=== PATIENT | male | born 1970 | race Caucasian/White ===

== ENCOUNTER 2020-03-28 10:45 | Observation (INO) | payer BC, SELFPAY ==
[2020-03-28] VITALS (9 sets, daily range): BP systolic 151–192; BP diastolic 98–136; PULSE 63–96; RESP 16–28; TEMP 36.3–36.6; O2SAT 97–100; BMI 32.1
--- NOTE | ~2020-03-28 | US_ITS ---
EXAMINATION: US renal BI DATE: 03/29/2020 10:16 INDICATION: Elevated creatinine TECHNIQUE: Multiple grayscale and Doppler ultrasound images of the kidneys were obtained. COMPARISON: None. FINDINGS: The right kidney measures 10.2 x 5.1 x 5.3 cm. The left kidney measures 10.0 x 5.5 x 6.0 cm . The kidneys demonstrate normal parenchymal echogenicity. There is no hydronephrosis. The bladder is normal. The prostate is enlarged. IMPRESSION: 1. Normal kidneys without hydronephrosis. Reviewed, dictated and finalized at location A. OR OF DENTAL MEDICINE
--- NOTE | ~2020-03-28 | XR_ITS ---
EXAMINATION: XR chest 1V portable DATE: 03/28/2020 12:07 INDICATION: Shortness of breath TECHNIQUE: frontal view of the chest was obtained. COMPARISON: Chest radiograph dated 04/03/2011 FINDINGS: Diffuse increased interstitial pattern. Several airspace opacity in the right infrahilar region. Unch anged linear likely discoid atelectasis/scarring at the medial left lung base. Calcified nodules in t he left midlung zone consistent with old granulomatous disease. No pleural effusion or pneumothorax. Cardiomegaly. Partially visualized plate and screw fixation for anterior spinal fusion in the mid to lower cervical spine. IMPRESSION: 1. Cardiomegaly. 2. Diffuse increased interstitial pattern and subtle right infrahilar opacity and would favor congest remedios heart failure related pulmonary edema over pneumonia. Reviewed, dictated and finalized at location A. ER IMPRESSION: 1. Cardiomegaly. 2. Diffuse increased interstitial pattern and subtle right infrahilar opacity a nd would favor congestive heart failure related pulmonary edema over pneumonia.
--- NOTE | 2020-03-28 11:07 | ECG_ITS ---
Measurements Intervals [place] Rate: 84 P: 53 VT: 174 QRS: 1 QRSD: 106 T: 160 QT: 388 QTc: 461 Interpretive Statements SINUS RHYTHM LEFT ATRIAL ENLARGEMENT LEFT VENTRICULAR HYPERTROPHY AND ST-T CHANGE BORDERLINE ECG Electronically Signed On 03-28-2020 11:59:16 MATERIALS RECYCLER by Surinder Salazar D.O.
[2020-03-28 11:23] LABS: Basophils Percent Auto 0.3 % (0.2-1.2); Eosinophils Absolute Auto 0.1 K/mm3 (0-0.3); Eosinophils Percent Auto 1.8 % (0-4.4); Hematocrit 48.3 % (42.0-52.0); Hemoglobin 16.3 g/dL (14.0-18.0); Immature Granulocyte Absolute 0.03 K/mm3 (0.00-0.031); Immature Granulocyte Percent A 0.4 % (0-0.5); Lymphocytes Absolute Auto 1.19 K/mm3 (0.9-3.2); Lymphocytes Percent Auto 17.6 % (18.3-44.2); Mean Corpuscular HGB Conc 33.7 g/dl (32-36); Mean Corpuscular Hemoglobin 29.4 pg (26-34); Mean Platelet Volume 11.7 fl (7.4-10.4); Monocytes Absolute Auto 0.4 K/mm3 (0.1-0.6); Monocytes Percent Auto 6.2 % (2.6-8.5); Neutrophils Percent Auto 73.7 % (45.5-73.1); Platelet Count Result 195 k/mm3 (150-375); Red Blood Count 5.55 M/mm3 (4.6-6.20); Red Cell Distribution Width 13.2 % (11.5-14.5); White Blood Count 6.8 K/mm3 (4.5-10.0)
[2020-03-28 11:38] LABS: Anion Gap 8 mmol/L (8-16); Blood Urea Nitrogen 32 mg/dL (9-20); Calcium 9.1 mg/dL (8.4-10.2); Carbon Dioxide 28 mmol/L (22-30); Chloride 106 mmol/L (98-107); Estimated CRCL calculation 57 ml/min; Estimated Glomerular Filt Rate 46; Glucose 115 mg/dL (75-110); Potassium 4.3 mmol/L (3.4-5.0); Sodium 142 mmol/L (137-145)
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
[2020-03-28 13:56] LABS: NT Pro B Type Natriuretic Pept 2740 PG/ML (5-100)
[2020-03-28] MEDS: FUROSEMIDE INJ 40 MG/4 ML VIAL IV PUSH (14:28)
[2020-03-28] MEDS: hydrALAZINE HCL 20 MG/ML VIAL 10 MG IV PUSH (15:56)
--- NOTE | 2020-03-28 17:05 | PC.NURSE ---
This patient, Boris Conner, was admitted to 3 [facility] Surg Room 316-01. Patient/family oriented to hospital policies and general routines including ID bracelet, bed and alarms, visiting hours, pain management, procedures, bathroom and other care routines, personal items, smoking policy, room service/diet, and visiting hours. Information on how to activate the Rapid Response Team has been discussed. Patient/Family are encouraged to report perceived risks to care and to ask questions if they do not understand what they are told or what they should do.
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
[2020-03-28] MEDS: METOPROLOL SUCCINATE EXT REL 50 MG TABCR 150 MG PO (18:10)
[2020-03-28] MEDS: amLODIPine BESYLATE 5 MG TABLET 10 MG PO (18:10)
[2020-03-28 20:21] LABS: Add Urine Microscopic? NO; Appearance Urine Clear (Clear); Bilirubin Urine Negative (Negative); Blood Urine Negative (Negative); Color Urine Colorless (Yellow); Glucose Urine UA Negative (Negative); Ketones Urine Negative (Negative); Leukocyte Esterase Ur Negative LEU/UL (NEGATIVE); Nitrate Urine Negative (Negative); Protein Urine Negative (Negative); Specific Grav Ur 1.009 (1.001-1.035); Urobilinogen Urine Negative mg/dL (<2.0)
[2020-03-28] MEDS: ACETAMINOPHEN 325 MG TABLET 650 MG PO (21:15)
[2020-03-28] MEDS: ENOXAPARIN 40 MG/0.4 ML SYRINGE SUB-Q (21:16)
[2020-03-29] VITALS (9 sets, daily range): BP systolic 141–181; BP diastolic 89–123; PULSE 50–67; RESP 16–20; TEMP 36.4–36.6; O2SAT 94–100
--- NOTE | 2020-03-29 06:00 | ECHO_ITS ---
Patient Info Name: Boris Conner Age: 50 years : 1970 Gender: Male Ht: 69 in Wt: 217 lbs BSA: 2.22 m2 HR: 56 bpm BP: 144 / 99 mmHg Heart Rhythm: Sinus Rhythm Technical Quality: Good Exam Date: 03/29/2020 8:20 AM Exam Location: [facility] Pulmonary Exam Room: [facility] Patient Status: Outpatient Admit Date: 03/28/2020 Staff Ordering Physician: yKe Greco MD Radiology Director: Aliya James RDCS Attending Provider: Soledad Bender MD Referring Physician: Angus AGUDELO; Exam Type: CA echo doppler color flow Study Info Indications - htn systolic murmur chf Complete two-dimensional, color flow and Doppler transthoracic echocardiogram is performed. History/Risk Factors covid january 2020. Summary 1. Left ventricular chamber dimension is normal. 2. Left ventricular systolic function is moderately reduced, estimated at 35%. 3. Severe basal inferior hypokinesis. 4. False tendon noted in LV. 5. There is moderately increased left ventricular wall thickness. 6. The left ventricular diastolic function is grade II diastolic dysfunction. 7. Left atrial chamber dimension is severely enlarged. 8. Right atrial chamber dimension is moderately enlarged. 9. There is no aortic valve stenosis. 10. There is mild mitral valve regurgitation. 11. There is mild tricuspid valve regurgitation. 12. No pulmonary hypertension, estimated pulmonary arterial systolic pressure is 33 mmHg. Left Ventricle Left ventricular chamber dimension is normal. Left ventricular systolic function is moderately reduced, estimated at 35%. There is moderately increased left ventricular wall thickness. The left ventricular diastolic function is grade II diastolic dysfunction. Global longitudinal strain is severely elevated at -9 %. False tendon noted in LV. Severe basal inferior hypokinesis. Right Ventricle Right ventricular chamber dimension is normal. Right ventricular systolic function is normal. Borderline right ventricular hypertrophy. Left Atria Left atrial chamber dimension is severely enlarged. Right Atria Right atrial chamber dimension is moderately enlarged. Aortic Valve The aortic valve is not well visualized. There is no aortic valve stenosis. There is no aortic valve regurgitation. Pulmonic Valve The pulmonic valve is normal. There is mild pulmonic regurgitation. Mitral Valve The mitral valve has normal leaflets. There is mild mitral valve regurgitation. The mitral valve annulus is mildly calcified. Tricuspid Valve The tricuspid valve leaflets are normal. There is mild tricuspid valve regurgitation. No pulmonary hypertension, estimated pulmonary arterial systolic pressure is 33 mmHg. Pericardium/Pleural The pericardium appears normal. There is no pericardial effusion. Inferior Vena Cava Normal inferior vena cava with >50% collapse upon inspiration consistent with normal right atrial pressure, 5 mmHg. Aorta The aortic root size at the sinus of Valsalva is normal. Left Ventricular Outflow Tract Name Value Normal LVOT 2D LVOT Diameter 2.1 cm LVOT Doppler
[2020-03-29 06:50] LABS: Alanine Aminotransferase 20 U/L (4-50); Albumin Level 3.9 g/dL (3.5-5.1); Alkaline Phosphatase 86 U/L (38-126); Anion Gap 9 mmol/L (8-16); Aspartate Amino Transferase 24 U/L (17-59); Bilirubin,Total 2.5 mg/dL (0.2-1.3); Blood Urea Nitrogen 28 mg/dL (9-20); Carbon Dioxide 31 mmol/L (22-30); Chloride 100 mmol/L (98-107); Estimated CRCL calculation 54 ml/min; Estimated Glomerular Filt Rate 43; Glucose 110 mg/dL (75-110); Magnesium 2.2 mg/dL (1.6-2.3); Potassium 3.8 mmol/L (3.4-5.0); Sodium 140 mmol/L (137-145)
[2020-03-29] MEDS: POTASSIUM CHLORIDE 20 MEQ TABLET 40 MEQ PO (08:09)
[2020-03-29] MEDS: METOPROLOL SUCCINATE EXT REL 50 MG TABCR 150 MG PO (09:19)
[2020-03-29] MEDS: amLODIPine BESYLATE 5 MG TABLET 10 MG PO (09:19)
[2020-03-29] MEDS: FUROSEMIDE INJ 40 MG/4 ML VIAL IV PUSH (09:20)
[2020-03-29] MEDS: lisinopriL 20 MG TABLET PO (09:24)
--- NOTE | 2020-03-29 12:47 | PM.CNCAR ---
Assessment and Plan Assessment and plan (1) Acute exacerbation of CHF (congestive heart failure): Code(s): I50.9 - Heart failure, unspecified Status: Acute Assessment and Plan: Essentially euvolemic at this time. Echocardiogram new cardiomyopathy EF 30 35%, normal LV size, moderate LVH. Change to p.o. Lasix 20 mg daily, BMP in 1 week as outpatient. Continue beta-daryl, VALERIA-inhibitor therapy as renal function allows. CHF counseling performed and discussed at length. Pt stable and relatively asymptomatic. Disposition per Hospitalist Serve (2) Cardiomyopathy: Code(s): I42.9 - Cardiomyopathy, unspecified Status: Acute Assessment and Plan: New diagnosis, precise etiology unclear. We discussed concern for underlying obstructive CAD, nonischemic explanations including but not limited to post COVID, hypertensive heart disease related cardiomyopathy and others although I suspect less likely simply hypertensive as LV size is normal. Severe left atrial moderate right atrial enlargement etiology not entirely clear but additionally concerning. We discussed ischemic versus nonischemic workup, however, given documented LV dysfunction with wall motion abnormalities recommend proceeding directly with coronary angiography for definitive evaluation coronary anatomy. If nonobstructive disease discovered discussed further workup including cardiac MRI as clinically relevant. We discussed this with the patient and his danika Ashby over the phone. All questions answered to their satisfaction. Patient verbalized understanding and agreed with plan of care. Continue beta-daryl, VALERIA-inhibitor therapy. BP control primary focus at this time. (3) Abnormal EKG: Code(s): R94.31 - Abnormal electrocardiogram [ECG] [EKG] Status: Acute Assessment and Plan: Sinus rhythm with LVH and reports changes, however, EKG this admission more prominent. Check troponin and repeat EKG. Without be surprising troponin mildly elevated given renal insufficiency, uncontrolled hypertension and CHF exacerbation in setting of LV dysfunction. However, if elevated and repeat troponin flat more suggestive of type 2 infarct recommend aspirin 81 mg daily and plan for outpatient coronary angiography. (4) Uncontrolled hypertension: Code(s): I10 - Essential (primary) hypertension Status: Acute Assessment and Plan: Improved but not ideally controlled at this time. (5) CKD (chronic kidney disease) stage 3, GFR 30-59 ml/min: Code(s): N18.30 - Chronic kidney disease, stage 3 unspecified Status: Acute Assessment and Plan: Chronicity unknown. History of Present Illness History of Present Illness Consult date/time: Date of service: 03/29/20 12:47 Cardiology consultation at the request of Dr. Reyes of the [facility] service for our opinion regarding new cardiomyopathy and CHF. Requesting physician: Jared Reyes MD Consult reason: congestive heart failure and Other (New Cardiomyopathy) Reason For Visit: CHF Exacerbation Narrative: Patient is a pleasant 50-year-old male with a past medical history significant for longstanding hypertension and anxiety to the emergency department 03/28/2020 with progressive 2 week history of exertional dyspnea. He has decreased activity tolerance particularly up stairs but without associated chest pain. He admitted to orthopnea over the preceding several days. He claimed compliant with medications yet he had not been taking them consistently for several days prior to admission. Notes an occasional nonproductive cough but no fevers, chills, sick contacts, myalgias. Patient does state he had been previously feeling well remain active accept past 2 weeks more fatigued as above. He admits to orthopnea no lower extremity edema. He has no prior known history of coronary disease, CHF. He states he believes he had an echocardiogram 2007 with cannot recall the resul
--- NOTE | 2020-03-29 14:13 | ECG_ITS ---
Measurements Intervals [place] Rate: 55 P: 54 PA: 170 QRS: 8 QRSD: 106 T: 189 QT: 472 QTc: 454 Interpretive Statements SINUS BRADYCARDIA LEFT ATRIAL ENLARGEMENT LEFT VENTRICULAR HYPERTROPHY AND ST-T CHANGE ST-T WAVE ABNORMALITY IN ANTEROLATERAL/HIGH LAT LEADS- CONSIDER ISCHEMIA ABNORMAL ECG Electronically Signed On 03-29-2020 18:02:05 NURSING HOME DIRECTOR by Surinder Salazar D.O.
[2020-03-29 15:02] LABS: Troponin I 0.013 ng/mL (0.000-0.034)
--- NOTE | 2020-03-29 18:27 | PM.DS ---
DS: Admitting Diagnosis Admitting Diagnosis Admitting Diagnosis: Shortness of breath DS: Discharge Diagnosis Discharge Diagnosis (1) Hypertension: Qualifiers: Hypertension type: unspecified Qualified Code(s): I10 - Essential (primary) hypertension Code(s): I10 - Essential (primary) hypertension Status: Acute Assessment and Plan: Blood pressure markedly elevated on admission but had not taken his medications for several days. Had IV hydralazine and Lasix in the ER and resumed his medications. At discharge blood pressure improved but still slightly elevated at 144/98. Will follow-up with Dr. Cornejo within 2 weeks (2) Dyspnea on exertion: Code(s): R06.00 - Dyspnea, unspecified Status: Acute Assessment and Plan: Secondary to congestive heart failure. BNP elevated with negative troponin. TSH normal. Chest x-ray cardiomegaly with pulmonary vascular redistribution an EKG LVH with strain. Echocardiogram revealed ejection fraction of 35% with left ventricular hypertrophy and grade 2 diastolic dysfunction. Increase in left atrial and right atrial size with normal pulmonary artery pressure and inferior basal hypokinesis. Was given IV Lasix x2 doses and markedly improved with his shortness of breath after diuresis. Was seen by Cardiology and will follow-up within 2 weeks with plans for cardiac catheterization. Continue beta-daryl, VALERIA-inhibitor, and Lasix 20 mg daily added to regime along with his amlodipine (3) Elevated serum creatinine: Code(s): R79.89 - Other specified abnormal findings of blood chemistry Status: Acute Assessment and Plan: Creatinine 1.6 compatible with stage III renal failure. Unsure how chronic this is. 03/29/2020 creatinine 1.7.. Urinalysis was totally normal and renal sonogram was pending at the time of discharge. Will have repeat BMP drawn within 7-10 days (4) DVT prophylaxis: Code(s): Z29.9 - Encounter for prophylactic measures, unspecified Status: Acute Assessment and Plan: Lovenox while inpatient DS: Summary Hospital Course Hospital Course: Date of discharge and date of this visit 03/29/2020. 50-year-old hypertensive male presented to the emergency room with increasing shortness of breath over the past several weeks primarily dyspnea on exertion although there was a component of orthopnea. No chest pain or pedal edema. Echo revealed ejection fraction of 35% with left ventricular hypertrophy grade 2 diastolic dysfunction and and inferior basal hypokinesis. Left and right atrium were enlarged and pulmonary artery pressure was normal Stress importance of his antihypertensive medication taken regularly and Lasix 20 mg was added to his regime. He will have a basic metabolic profile drawn within 7-10 days and follow-up with Dr Cornejo in 2 weeks for probable cardiac catheterization. Time Spent with Patient Time attestation: Total time spent providing and/or coordinating discharge services: 35 minutes Exam Narrative: Exam Narrative: Condition on discharge Blood pressure 144/98 pulse is 58 regular sat 100% on room air afebrile Lungs were clear CV regular rate rhythm no murmurs Abdomen soft nontender Extremities without edema distal pulse 2 +and symmetrical Neuro alert oriented no focal deficits He was up in about no longer short of breath stable and able to be discharged home DS: Data Data Completed and Pending Labs on day of discharge: Labs from last 24 hours 03/29/20 03/29/20 03/29/20 14:33 05:48 05:48 Sodium 140 Potassium 3.8 Chloride 100 Carbon Dioxide 31 H Anion Gap 9 BUN 28 H Creatinine 1.70 H Estim Creat Clear Calc 54 Estimated GFR 43 L Glucose 110 Calcium 9.0 Magnesium 2.2 Total Bilirubin 2.5 H Direct Bilirubin 0.0 AST 24 ALT 20 Alkaline Phosphatase 86 Troponin I 0.013 Total Protein 7.0 Albumin 3.9 TSH (Reflex) 1.090 Urine Color
== END 2020-03-29 16:49 | disposition home or self-care (01) ==
LOC: ANHED 12:05 → ANH3MEDSUR 17:28
PROVIDERS: Emergency Medicine; Internal Medicine Cardiovascular Disease; Admitting Provider Family Medicine; Emergency Provider Emergency Medicine; PCP Emergency Medicine; Visit Provider Internal Medicine
DX: I13.0 Hypertensive heart and chronic kidney disease with heart failure and stage 1 through stage 4 chronic kidney disease, or unspecified chronic kidney disease (principal); I50.9 Heart failure, unspecified; I42.9 Cardiomyopathy, unspecified; N18.30 Chronic kidney disease, stage 3 unspecified; R94.31 Abnormal electrocardiogram [ECG] [EKG]; I34.0 Nonrheumatic mitral (valve) insufficiency; I36.1 Nonrheumatic tricuspid (valve) insufficiency; R06.00 Dyspnea, unspecified; R79.89 Other specified abnormal findings of blood chemistry; F41.9 Anxiety disorder, unspecified
CPT/HCPCS: 36415; 71045; 76775; 80048; 80076; 81003; 83735; 83880; 84443; 84484; 85025; 93005; 93306; 96372; 96374; 96375; 99285; A9270; G0378; J0360; J1650; J1940

== ENCOUNTER 2020-04-08 03:04 | Outpatient (CLI) | payer BC, SELFPAY ==
[2020-04-08 19:22] LABS: SARS-CoV-2 RNA PCR Negative
== END 2020-04-08 03:05 | disposition home or self-care (01) ==
LOC: ANHCOVIDDT 03:04
PROVIDERS: PCP Emergency Medicine; Visit Provider Internal Medicine Cardiovascular Disease
DX: Z01.812 Encounter for preprocedural laboratory examination (principal); Z20.822 Contact with and (suspected) exposure to COVID-19
CPT/HCPCS: C9803; U0003; U0005

== ENCOUNTER 2020-04-11 02:07 | Day surgery (SDC) | payer BC, SELFPAY ==
[2020-04-10 17:02] VITALS: BMI 32.1
[2020-04-11] VITALS (8 sets, daily range): BP systolic 138–167; BP diastolic 89–108; PULSE 63–74; RESP 14–22; TEMP 36.9; O2SAT 97–100; BMI 32.4
[2020-04-11 07:57] LABS: Basophils Percent Auto 0.2 % (0.2-1.2); Eosinophils Absolute Auto 0.1 K/mm3 (0-0.3); Eosinophils Percent Auto 1.2 % (0-4.4); Hemoglobin 16.1 g/dL (14.0-18.0); Immature Granulocyte Absolute 0.03 K/mm3 (0.00-0.031); Immature Granulocyte Percent A 0.3 % (0-0.5); Lymphocytes Absolute Auto 1.28 K/mm3 (0.9-3.2); Lymphocytes Percent Auto 14.2 % (18.3-44.2); Mean Corpuscular HGB Conc 33.5 g/dl (32-36); Mean Corpuscular Hemoglobin 29.3 pg (26-34); Mean Corpuscular Volume 87.3 fl (80-100); Mean Platelet Volume 11.7 fl (7.4-10.4); Monocytes Absolute Auto 0.5 K/mm3 (0.1-0.6); Monocytes Percent Auto 5.8 % (2.6-8.5); Neutrophils Absolute Auto 7.1 K/mm3 (1.3-6.7); Neutrophils Percent Auto 78.3 % (45.5-73.1); Platelet Count Result 164 k/mm3 (150-375); Red Cell Distribution Width 12.7 % (11.5-14.5)
--- NOTE | 2020-04-11 08:03 | SUR.PREOP ---
Pts bilateral groins and chest shaved by Shravan RN, all skin intact.
[2020-04-11 08:09] LABS: Prothrombin Time 13.3 Seconds (11.1-14.7)
[2020-04-11 08:13] LABS: Anion Gap 4 mmol/L (8-16); Blood Urea Nitrogen 25 mg/dL (9-20); Calcium 8.9 mg/dL (8.4-10.2); Carbon Dioxide 29 mmol/L (22-30); Chloride 105 mmol/L (98-107); Estimated CRCL calculation 63 ml/min; Estimated Glomerular Filt Rate 49; Glucose 116 mg/dL (75-110); Sodium 138 mmol/L (137-145)
--- NOTE | 2020-04-11 08:33 | WPDHPUPDATE1 ---
History and Physical Update Update Date/Time: 04/11/20 08:33 History and Physical has been reviewed, including an updated exam of the patient. There are NO changes in the patient's condition. Risks, benefits, and alternatives have been discussed and questions answered. Patient agrees to proceed with procedure.
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
--- NOTE | 2020-04-11 08:34 | WPDCARDPROC ---
Cardiac Cath Procedure Note Date of procedure:: 04/11/20 Performing physician:: Joseph Cornejo MD Indication:: New cardiomyopathy Brief clinical history:: Patient is a very pleasant 50-year-old male with history longstanding uncontrolled hypertension, CKD, new diagnosis cardiomyopathy and CHF ejection fraction 35% with severe basal inferior hypokinesis referred for left heart catheterization for delineation of his coronary anatomy. Procedure Procedure performed:: PROCEDURES PERFORMED: 1. Left heart catheterization 2. Selective left and right coronary angiography 3. Left ventriculography and hemodynamics 4. Moderate/conscious sedation administration 5. Selective right femoral angiography 6. 6 [place]uran Angio-Seal vascular closure device deployment in the right common femoral artery Sedation/Medication given:: MODERATE SEDATION/ANESTHESIA ADMINISTRATION: Patient reports no prior problems with sedation/anesthesia. Please see pre-sedation noted for physical examination documentation. Sedation start time was 0849 and end time was 0915 for a total intra-service/procedure face-face time of 26 minutes. A total of 3 mg intravenous Versed and a total of 75 mcg intravenous Fentanyl in multiple divided doses was administered for moderate sedation. Moderate sedation was administered by qualified/certified observer Laura Mckeon RN under my supervision with intra-procedure [id number] observation and management throughout the entirety of the procedure. There were no other issues or complications and patient tolerated the procedure well. See post-anesthesia documentation. Access site:: Right femoral artery Procedure note:: CATHETERS UTILIZED: Left coronary system- 5 [place]uran JL4 catheter Right coronary system- 5 [place]uran JR4 catheter Left ventriculography and hemodynamics- 5 [place]uran angled pigtail catheter PROCEDURE IN DETAIL: After verbal and written informed consent was obtained the patient, risks, benefits, and alternatives explained in detail the patient agreed to proceed with the plan of care as outlined above. The patient was subsequently brought to the cardiac catheterization lab, placed on the cardiac catheterization table, and prepped and draped in the usual sterile fashion. Utilizing approximately 18cc of 1% subcutaneous Lidocaine, the right groin was then locally anesthetized. Utilizing the modified Seldinger technique, a 5 [place]uran arterial vascular access sheath was inserted in the right common femoral artery easily and without complications. Through this access, coronary angiography was subsequently obtained in multiple standard re-projections. Following this, a 5 [place]uran angled pigtail catheter was advanced retrograde across aortic valve into the cavity of the left ventricle. Left ventriculography was performed and pullback across aortic valve was subsequently recorded. The vascular access sheath and angiographic catheters were flushed before and after catheter exchanges. At the conclusion of the diagnostic portion of the procedure, all angiographic guidewires and catheters were removed. selective right femoral angiography was performed which revealed the arteriotomy site to be proximal to the bifurcation in the right common femoral artery suitable for Angio-Seal vascular closure device deployment. Subsequently, over the wire, the 5 [place]uran arterial vascular access sheath was then removed a 6 [place]uran Angio-Seal vascular closure device was delivered without complication with achievement of satisfactory hemostasis. manual pressure was then held for 5-10 minutes per protocol. There no complications noted at the conclusion of the diagnostic portion of the study. Findings:: CORONARY ANGIOGRAPHY: The LEFT MAIN arose from the left coronary cusp and was without angiographically significant disease. The left main then bifurcated into the left anterior descending artery and circumflex coronary artery. LEFT ANTERIOR DESCENDING ARTERY: Moderate caliber
--- NOTE | 2020-04-11 12:44 | SUR.PHASEII ---
1225 d/c instructions reviewed with patient questions answered, IV cath d/c'd cath intact pressure applied, pt transported to [facility] via wheelchair where his picked him up in private vehicle and drove him home.
== END 2020-04-11 12:30 | disposition home or self-care (01) ==
PROVIDERS: PCP Emergency Medicine; Visit Provider Internal Medicine Cardiovascular Disease
PROC: 4A023N7 Measurement of Cardiac Sampling and Pressure, Left Heart, Percutaneous Approach (ICD-10-PCS; CPT 93452; principal; 2020-04-11 08:30)
DX: I42.9 Cardiomyopathy, unspecified (principal); I25.10 Atherosclerotic heart disease of native coronary artery without angina pectoris; F41.9 Anxiety disorder, unspecified; I10 Essential (primary) hypertension; R01.1 Cardiac murmur, unspecified; F17.210 Nicotine dependence, cigarettes, uncomplicated; E66.9 Obesity, unspecified; Z68.32 Body mass index [BMI] 32.0-32.9, adult
CPT/HCPCS: 36415; 80048; 85025; 85610; 93458; C1760; C1887; C1894; G0269; J1644; J2250; J3010; J7040

== ENCOUNTER 2020-04-13 10:59 | Emergency (ER) | payer BC, SELFPAY ==
[2020-04-13 11:11] VITALS: BP 162/109; PULSE 76; RESP 20; TEMP 37; O2SAT 98
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
== END 2020-04-13 12:01 | disposition home or self-care (01) ==
PROVIDERS: Emergency Provider Nurse Practitioner; PCP Emergency Medicine
DX: N39.0 Urinary tract infection, site not specified (principal); I10 Essential (primary) hypertension; R01.1 Cardiac murmur, unspecified
CPT/HCPCS: 81003; 87086; 99213; G0463

== ENCOUNTER 2020-05-01 14:21 | Emergency (ER) | payer BC, SELFPAY ==
[2020-05-01 14:26] VITALS: BP 168/112; PULSE 73; RESP 16; TEMP 37.4; O2SAT 100
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
[2020-05-01] MEDS: LIDOCAINE HCL 1% LOCAL INJ 20 ML VIAL INFILTRATE (15:07)
[2020-05-01] MEDS: cefTRIAXone 250 MG VIAL 500 MG IM (15:08)
== END 2020-05-01 15:34 | disposition home or self-care (01) ==
PROVIDERS: Emergency Provider Nurse Practitioner Family; PCP Emergency Medicine
DX: A54.9 Gonococcal infection, unspecified (principal); I13.0 Hypertensive heart and chronic kidney disease with heart failure and stage 1 through stage 4 chronic kidney disease, or unspecified chronic kidney disease; N18.30 Chronic kidney disease, stage 3 unspecified; I50.9 Heart failure, unspecified; F41.9 Anxiety disorder, unspecified
CPT/HCPCS: 96372; 99213; G0463; J0696

== ENCOUNTER 2020-05-14 06:46 | Outpatient (CLI) | payer BC, SELFPAY ==
--- NOTE | ~2020-05-14 | MR_ITS ---
EXAMINATION: MR lower leg RT wo/w con DATE: 05/14/2020 08:20 INDICATION: Right leg pain and lump at the lateral right calf. TECHNIQUE: Magnetic resonance imaging (MRI) of the right lower leg the region of concern was performe d without and with 20 mL Multihance intravenous contrast. A marker was placed over the region of con cern. Sequences included axial, sagittal and coronal T1-weighted FSE and fluid sensitive FSE STIR, ax ial T1-weighted FS FSE and post contrast axial and coronal T1-weighted FS FSE. COMPARISON: None. FINDINGS: Deep to the marker indicating the region of concern is a 1.1 x 1.0 x 1.6 cm T2 hyperintense enhancing lesion within the peroneus brevis muscle belly. This demonstrates a similar degree of enhancement an d if not contiguous with, abuts and 1.5 mm diameter vein. The differential would include a short veno us varix or avidly enhancing neoplasm with signal characteristics, location and appearance favoring a schwannoma or peripheral nerve sheath tumor. Soft tissues of the visualized calf are otherwise unrem arkable. Normal bone marrow signal in the visualized tibia and fibula. IMPRESSION: 1. Lesion of concern appears to correspond to a 1.1 x 1.0 x 1.6 cm enhancing lesion in the peroneus b jesus alberto muscle belly. Differential would include venous varix or solid neoplasm such as schwannoma or p eripheral nerve sheath tumor. Ultrasound could be obtained to differentiate a varix from a solid neop lasm. Reviewed, dictated and finalized at location A. GRITY CONSULTANT IMPRESSION: 1. Lesion of concern appears to correspond to a 1.1 x 1.0 x 1.6 cm enhancing le eloisa in the peroneus brevis muscle belly. Differential would include venous christian ix or solid neoplasm such as schwannoma or peripheral nerve sheath tumor. Ultra sound could be obtained to differentiate a varix from a solid neoplasm.
[2020-05-14 07:27] LABS: Estimated Glomerular Filt Rate 46
== END 2020-05-14 06:47 | disposition home or self-care (01) ==
PROVIDERS: PCP Emergency Medicine; Visit Provider Emergency Medicine
DX: M79.89 Other specified soft tissue disorders (principal); M89.9 Disorder of bone, unspecified
CPT/HCPCS: 73720; A9577

== ENCOUNTER 2020-05-21 16:22 | Outpatient (CLI) | payer BC, SELFPAY ==
--- NOTE | ~2020-05-21 | US_ITS ---
EXAMINATION: US soft tissue LE RT DATE: 05/21/2020 16:42 INDICATION: Right calf pain. Right calf mass. TECHNIQUE: Multiple grayscale and Doppler ultrasound images of the right calf were obtained. COMPARISON: MRI 05/14/2020 FINDINGS: There is a 1.5 x 0.9 x 1.2 cm intramuscular hypoechoic mass in right calf. There is no inte rnal vascular flow visible on color Doppler. IMPRESSION: 1. 1.5 cm intramuscular mass in right calf correlating with the MRI abnormality. This finding may be a hemangioma or peripheral nerve sheath tumor, but malignancy cannot be excluded. Ultrasound-guided c ore needle biopsy is recommended. Reviewed, dictated and finalized at location A. RUCTOR PSYCHIATRIC AIDE IMPRESSION: 1. 1.5 cm intramuscular mass in right calf correlating with the MRI abnormality . This finding may be a hemangioma or peripheral nerve sheath tumor, but malign pelon cannot be excluded. Ultrasound-guided core needle biopsy is recommended.
== END 2020-05-21 16:23 | disposition home or self-care (01) ==
PROVIDERS: PCP Emergency Medicine; Visit Provider Emergency Medicine
DX: M79.661 Pain in right lower leg (principal)
CPT/HCPCS: 76882

== ENCOUNTER 2020-06-02 13:15 | Outpatient (CLI) | payer BC, SELFPAY ==
--- NOTE | ~2020-06-02 | US_ITS ---
EXAMINATION: US biopsy st muscle DATE: 06/02/2020 14:57 INDICATION: Right calf mass. TECHNIQUE: The procedure including the risks, benefits, and alternatives was discussed with the patie nt. Risks discussed included bleeding and infection. The patient understood the risks and agreed to p roceed. The skin overlying the right calf was prepped and draped in usual sterile fashion. Anestheti c was administered with 1% lidocaine subcutaneously. An 18 gauge core biopsy needle was then used to obtain 3 core biopsy specimens under continuous sonographic guidance. The entry site was cleaned and dressed. There were no immediate complications. FINDINGS: Ultrasound images demonstrate the needle in a 1.9 x 1.0 cm hypoechoic intramuscular mass in right calf. IMPRESSION: 1. Ultrasound-guided core needle biopsy a 1.9 cm intramuscular mass in right calf. Reviewed, dictated and finalized at location A. ESTIMATOR IMPRESSION: 1. Ultrasound-guided core needle biopsy a 1.9 cm intramuscular mass in right ca lf.
== END 2020-06-02 13:16 | disposition home or self-care (01) ==
LOC: ANHIMG 13:21
PROVIDERS: PCP Emergency Medicine; Visit Provider Emergency Medicine
DX: M79.661 Pain in right lower leg (principal)
CPT/HCPCS: 20206; 76942; 88305; 88342

== ENCOUNTER 2020-11-14 09:20 | Emergency (ER) | payer BC, SELFPAY ==
[2020-11-14 09:28] VITALS: BP 153/108; PULSE 60; RESP 16; TEMP 36.1; O2SAT 100
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
[2020-11-14] MEDS: LIDOCAINE HCL 1% LOCAL INJ 20 ML VIAL 2.1 ML IM (09:55)
[2020-11-14] MEDS: cefTRIAXone 1 GM VIAL 0.5 GM IM (09:55)
== END 2020-11-14 10:16 | disposition home or self-care (01) ==
PROVIDERS: Emergency Provider Nurse Practitioner; PCP Emergency Medicine
DX: Z20.2 Contact with and (suspected) exposure to infections with a predominantly sexual mode of transmission (principal); F41.9 Anxiety disorder, unspecified; I13.0 Hypertensive heart and chronic kidney disease with heart failure and stage 1 through stage 4 chronic kidney disease, or unspecified chronic kidney disease; N18.30 Chronic kidney disease, stage 3 unspecified; I50.9 Heart failure, unspecified; R01.1 Cardiac murmur, unspecified
CPT/HCPCS: 87491; 87591; 87661; 96372; 99213; G0463; J0696

== ENCOUNTER 2022-08-22 14:57 | Observation (INO) | payer BC, SELFPAY ==
[2022-08-22] VITALS (8 sets, daily range): BP systolic 128–202; BP diastolic 81–146; PULSE 66–82; RESP 16–29; TEMP 36.6–36.7; O2SAT 96–99; BMI 34.0
--- NOTE | ~2022-08-22 | XR_ITS ---
EXAMINATION: XR chest 1V portable DATE: 08/22/2022 15:29 INDICATION: Hypertension. Left-sided numbness. TECHNIQUE: frontal view of the chest was obtained. COMPARISON: Chest radiograph dated 03/28/2020 FINDINGS: Cardiomegaly with persistent pulmonary gastric congestion but now without ludivina pulmonary edema. Coup le unchanged calcified nodules in the lateral left midlung zone consistent with old granulomatous dis ease. No pleural effusion or pneumothorax. IMPRESSION: 1. Cardiomegaly with pulmonary vascular congestion but without ludivina pulmonary edema. Reviewed, dictated and finalized at location A.
--- NOTE | ~2022-08-22 | CT_ITS ---
EXAMINATION: CT brain wo con DATE: 08/22/2022 16:10 INDICATION: Left-sided numbness TECHNIQUE: Computed tomography (CT) of the head was performed without intravenous contrast. Sagittal and coronal reconstructions were performed. The mA was adjusted according to patient size. Iterative reconstruction technique was employed. The dose-length product was 605.33 mGy-cm. COMPARISON: None FINDINGS: Small old lacunar infarct at the anterior limb of the left internal capsule. Additional small old inf arct in the right parieto-occipital region. No acute intracranial hemorrhage, acute infarction or abn ormal extra axial fluid collection. There is mild scattered white matter hypoattenuation consistent w ith chronic small vessel ischemic disease. Ventricles are normal and symmetric with normal variant ca vum septum pellucidum at vergae.. No mass/mass effect. The orbits and paranasal sinuses are normal. B ilateral mastoids are hypopneumatized. IMPRESSION: 1. Couple small old infarcts at the anterior limb of the left internal capsule and in the right parie to-occipital region. No other acute intracranial process. 2. Mild scattered white matter hypoattenuation consistent with chronic small vessel ischemic disease. Reviewed, dictated and finalized at location A. IMPRESSION: 1. Couple small old infarcts at the anterior limb of the left internal capsule and in the right parieto-occipital region. No other acute intracranial process. 2. Mild scattered white matter hypoattenuation consistent with chronic small ve ssel ischemic disease.
--- NOTE | 2022-08-22 15:04 | ECG_ITS ---
Measurements Intervals [place] Rate: 67 P: 35 AL: 171 QRS: -14 QRSD: 107 T: 142 QT: 427 QTc: 453 Interpretive Statements SINUS RHYTHM POSSIBLE LEFT ATRIAL ENLARGEMENT LEFT VENTRICULAR HYPERTROPHY AND ST-T CHANGE BORDERLINE ECG COMPARED TO ECG 03/29/2020 14:27:21 SINUS RHYTHM NOW PRESENT Electronically Signed On 08-23-2022 7:52:46 CDT by Surinder Salazar D.O.
[2022-08-22 15:37] LABS: Basophils Percent Auto 0.3 % (0.2-1.2); Eosinophils Absolute Auto 0.1 K/mm3 (0-0.3); Eosinophils Percent Auto 1.1 % (0-4.4); Hematocrit 52.7 % (42.0-52.0); Immature Granulocyte Absolute 0.02 K/mm3 (0.00-0.031); Immature Granulocyte Percent A 0.3 % (0-0.5); Lymphocytes Absolute Auto 1.49 K/mm3 (0.9-3.2); Mean Corpuscular HGB Conc 34.2 g/dl (32-36); Mean Corpuscular Hemoglobin 29.3 pg (26-34); Mean Corpuscular Volume 85.7 fl (80-100); Mean Platelet Volume 11.4 fl (7.4-10.4); Monocytes Absolute Auto 0.4 K/mm3 (0.1-0.6); Monocytes Percent Auto 4.6 % (2.6-8.5); Neutrophils Absolute Auto 5.9 K/mm3 (1.3-6.7); Neutrophils Percent Auto 74.7 % (45.5-73.1); Platelet Count Result 205 k/mm3 (150-375); Red Blood Count 6.15 M/mm3 (4.6-6.20); Red Cell Distribution Width 13.4 % (11.5-14.5); White Blood Count 7.8 K/mm3 (4.5-10.0)
[2022-08-22 15:46] LABS: Alanine Aminotransferase 22 U/L (6-50); Albumin Level 4.7 g/dL (3.5-5.1); Alkaline Phosphatase 104 U/L (38-126); Anion Gap 12 mmol/L (8-16); Aspartate Amino Transferase 23 U/L (17-59); Bilirubin,Total 2.4 mg/dL (0.2-1.3); Blood Urea Nitrogen 25 mg/dL (9-20); Calcium 8.7 mg/dL (8.4-10.2); Carbon Dioxide 21 mmol/L (22-30); Chloride 105 mmol/L (98-107); Estimated CRCL calculation 53 ml/min; Estimated Glomerular Filt Rate 40; Glucose 124 mg/dL (65-110); Potassium 4.3 mmol/L (3.4-5.0); Sodium 138 mmol/L (137-145)
[2022-08-22 15:52] LABS: Prothrombin Time 13.9 Seconds (11.1-14.7)
[2022-08-22 15:53] LABS: Partial Thromboplastin Time 33.8 SECONDS (22.3-36.8)
[2022-08-22 15:57] LABS: Troponin I < 0.012 ng/mL (0.000-0.034)
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
[2022-08-22] MEDS: ASPIRIN 81 MG CHEWABLE TABLET 324 MG PO (18:19)
--- NOTE | 2022-08-22 20:01 | ADMGEN ---
This patient, Boris Conner, was admitted to Medical Room 344-01. Patient/family oriented to hospital policies and general routines including ID bracelet, bed and alarms, visiting hours, pain management, procedures, bathroom and other care routines, personal items, smoking policy, room service/diet, and visiting hours. Information on how to activate the Rapid Response Team has been discussed. Patient/Family are encouraged to report perceived risks to care and to ask questions if they do not understand what they are told or what they should do.
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
[2022-08-22] MEDS: hydrALAZINE HCL 20 MG/ML VIAL 10 MG IV PUSH (23:17)
[2022-08-23] VITALS: PULSE 55
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
[2022-08-23 04:00] VITALS: PULSE 56
[2022-08-23 04:23] VITALS: BP 186/119; PULSE 56; RESP 20; TEMP 36.4; O2SAT 97
[2022-08-23 05:53] LABS: Basophils Percent Auto 0.2 % (0.2-1.2); Eosinophils Absolute Auto 0.2 K/mm3 (0-0.3); Eosinophils Percent Auto 2.3 % (0-4.4); Hematocrit 51.8 % (42.0-52.0); Hemoglobin 17.4 g/dL (14.0-18.0); Immature Granulocyte Absolute 0.01 K/mm3 (0.00-0.031); Immature Granulocyte Percent A 0.2 % (0-0.5); Lymphocytes Absolute Auto 1.41 K/mm3 (0.9-3.2); Lymphocytes Percent Auto 21.4 % (18.3-44.2); Mean Corpuscular HGB Conc 33.6 g/dl (32-36); Mean Corpuscular Volume 86.3 fl (80-100); Mean Platelet Volume 11.8 fl (7.4-10.4); Monocytes Absolute Auto 0.5 K/mm3 (0.1-0.6); Monocytes Percent Auto 7.6 % (2.6-8.5); Neutrophils Absolute Auto 4.5 K/mm3 (1.3-6.7); Neutrophils Percent Auto 68.3 % (45.5-73.1); Platelet Count Result 174 k/mm3 (150-375); Red Cell Distribution Width 13.5 % (11.5-14.5); White Blood Count 6.6 K/mm3 (4.5-10.0)
[2022-08-23 06:19] LABS: Alanine Aminotransferase 21 U/L (6-50); Alkaline Phosphatase 79 U/L (38-126); Anion Gap 7 mmol/L (8-16); Aspartate Amino Transferase 20 U/L (17-59); Bilirubin,Total 2.5 mg/dL (0.2-1.3); Blood Urea Nitrogen 27 mg/dL (9-20); Calcium 8.5 mg/dL (8.4-10.2); Carbon Dioxide 26 mmol/L (22-30); Chloride 106 mmol/L (98-107); Estimated CRCL calculation 53 ml/min; Estimated Glomerular Filt Rate 40; Glucose 107 mg/dL (65-110); Magnesium 2.2 mg/dL (1.6-2.3); Potassium 3.8 mmol/L (3.4-5.0); Sodium 139 mmol/L (137-145)
[2022-08-23] MEDS: ASPIRIN 81 MG CHEWABLE TABLET PO (08:40)
[2022-08-23 08:41] VITALS: PULSE 80
[2022-08-23] MEDS: SACUBITRIL/VALSARTAN 97-103 MG TABLET 1 TAB PO (08:41)
[2022-08-23] MEDS: carvediloL 25 MG TABLET PO (08:41)
[2022-08-23] MEDS: SPIRONOLACTONE 25 MG TABLET PO (08:41)
[2022-08-23 09:39] VITALS: O2SAT 98
--- NOTE | 2022-08-23 11:18 | PM.DS ---
DS: Admitting Diagnosis Discharge Date 08/23/2022 Admitting Diagnosis Left upper and lower extremity numbness DS: Discharge Diagnosis Discharge Diagnosis (1) Brain TIA: Code(s): G45.9 - Transient cerebral ischemic attack, unspecified Status: Acute (2) Hypertension: Qualifiers: Hypertension type: unspecified Qualified Code(s): I10 - Essential (primary) hypertension Code(s): I10 - Essential (primary) hypertension Status: Acute DS: Summary Hospital Course Hospital Course: this is a 52-year-old male patient who came to the emergency room with complaint of intermittent heaviness and numbness to left upper left lower extremity for the past 2 days.? The patient lives home alone.? Therefore no other family members have noticed any focal weakness.? The patient stated that his symptoms only lasted for about 10 minutes today and only last about 2 minutes 2 days ago.? He denies any dizziness or fever chills or any nausea vomiting or diarrhea.? He has no focal weakness.? He does have a past medical history of congestive heart failure and hypertension.? The patient denies any new medications.? He denies any drug alcohol or illicit drugs.? His creatinine is 1.8 today with an average? baseline range of 1.5 to 1.7.? His glucose is 124. Troponin was negative.? His head CT was read as couple small old infarcts at the anterior limb of the left internal capsule and in the right parieto-occipital region.? No other acute intracranial process.? Mild scattered white hypoattenuation consistent with chronic small vessel ischemic disease.? The patient does not taken aspirin at home.? Chest x-ray was read as cardiomegaly with pulmonary vascular congestion but without ludivina pulmonary ? Edema.? The patient was given? A full-strength aspirin in the emergency room.? Echo and MRI and carotid duplex were ordered. Echo has been done but has not been reported yet. MRI and carotid duplex scan be done today being a holiday. Patient is currently asymptomatic and is being discharged home. Patient was counseled extensively on lifestyle modification. We will order outpatient MRI and carotid duplex as well as lipid profile. Patient will be discharged home on aspirin 81 mg a day for secondary prevention. Time Spent with Patient Time attestation: Total time spent providing and/or coordinating discharge services: Exam Const: General: cooperative, healthy appearing, comfortable, no acute distress, well developed, alert, awake, Physically active, average body habitus and well nourished Nutritional Appearance: average body habitus and well nourished Orientation/consciousness: oriented to person, oriented to place, oriented to time and patient oriented x3 Limitations: no limitations HENMT: Head: normal to inspection, No palpable skull fracture present, normocephalic and atraumatic Ears: hearing grossly normal bilaterally and external ears normal Face/Nose/Sinus: Normal external nose present and Normal nares present Eyes: General: appearance normal, both eyes and all related structures Alignment and Position: alignment normal Periorbital: periorbital findings normal Eyelids: eyelids normal Sclera: sclerae normal Pupils: Equal, round and reactive pupils present EOM: EOMs intact bilaterally Neck: Neck: normal visual inspection, full ROM, no lymphadenopathy, trachea midline and supple Chest: Chest palpation & inspection: normal inspection of the chest Resp: Effort & Inspection: normal respiratory effort Auscultation: clear to auscultation bilaterally Cardio: Palpation: normal PMI Rate: regular rate Rhythm: regular rhythm Heart sounds: S1 normal heart sound present and S2 normal heart sound present Peripheral pulses: Peripheral pulses 2+ throughout GI: Inspection: normal to inspection Auscultation: normal bowel sounds Rectal Exam: deferred Back/Spine/Pelvis: Cervical Spine: cervical ROM normal Skin: General skin exam: normal color Les
== END 2022-08-23 11:45 | disposition home or self-care (01) ==
LOC: ANHED 18:15 → ANH3MED 19:21
PROVIDERS: Nurse Practitioner; Admitting Provider Family Medicine; Emergency Provider Emergency Medicine; PCP Emergency Medicine; Visit Provider Hospitalist
DX: G45.9 Transient cerebral ischemic attack, unspecified (principal); I50.9 Heart failure, unspecified; I13.0 Hypertensive heart and chronic kidney disease with heart failure and stage 1 through stage 4 chronic kidney disease, or unspecified chronic kidney disease; N18.30 Chronic kidney disease, stage 3 unspecified; R01.1 Cardiac murmur, unspecified; R79.89 Other specified abnormal findings of blood chemistry; F41.9 Anxiety disorder, unspecified; F10.90 Alcohol use, unspecified, uncomplicated; I08.0 Rheumatic disorders of both mitral and aortic valves; R09.89 Other specified symptoms and signs involving the circulatory and respiratory systems; Z86.73 Personal history of transient ischemic attack (TIA), and cerebral infarction without residual deficits; R90.82 White matter disease, unspecified; Z79.899 Other long term (current) drug therapy; Z82.49 Family history of ischemic heart disease and other diseases of the circulatory system
CPT/HCPCS: 36415; 70450; 71045; 80053; 83735; 84443; 84484; 85025; 85610; 85730; 93005; 93306; 99285; A9270; G0378; J0360

== ENCOUNTER 2023-07-20 10:30 | Outpatient (CLI) | payer BC, SELFPAY ==
--- NOTE | ~2023-07-20 | XR_ITS ---
XR chest 2V 07/20/2023 10:58 Indication: Dyspnea Procedure: 2 view chest Comparison: 11/12/2009 Findings: Cardiomegaly with mild interstitial edema. No significant effusion. No pneumothorax. No acu te osseous abnormality. Impression: 1: Cardiomegaly with mild interstitial edema. Reviewed, dictated and finalized at location B. Impression: 1: Cardiomegaly with mild interstitial edema.
== END 2023-07-20 10:31 | disposition home or self-care (01) ==
LOC: ANHIMG 10:34
PROVIDERS: PCP Emergency Medicine; Visit Provider Emergency Medicine
DX: R09.89 Other specified symptoms and signs involving the circulatory and respiratory systems (principal); I51.7 Cardiomegaly
CPT/HCPCS: 71046

== ENCOUNTER 2024-05-08 00:39 | Day surgery (SDC) | payer BC, SELFPAY ==
[2024-04-24 14:32] VITALS: BMI 36.6
--- OUTSIDE RECORDS SUMMARY | 2024-05-08 00:43 | XMS_ITS | Encounter Summary ---
Author Organization [facility] Healthcare Address [address] [place] [address] Care Team Providers Care Channel Business Manager Name Role Phone Sourav Romano MD Primary Care Provide r Joseph Cornejo MD Unavailable [phone] Brian Baron MD Unavailable [phone] Aliya Braswell RN Unavailable [phone] Encounter Details Date Type Department Care Team (Late st Contact Info) Description 05/07/2024 Telephone [facility] Transplant Heart [address] [address] Mailstop [id number] [place], [place] [id number] Chiquita Walton 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 Tobacco Use Types Packs/Day Years Used Date Smoking Tobacco: Never Smokeless Tobacco: Never Alcohol Use Standard Drinks/Week Comments Yes 0 (1 standard drink = 0.6 oz pur e alcohol) socially AUDIT-C Answer Date Recorded Q1: How often do you have a drink containing alc ohol? 2-4 times a month 07/18/2020 Q2: How many drinks containi ng alcohol do you have on a typical day when you are drinking? 1 or 2 07/18/2020 Q3: How often do you have si x or more drinks on one occasion? Less than monthly 07/18/2020 Sex and Gender Information Value Date Recorded Sex Assigned at Not on file Legal Sex Male 7:07 PM REVIEW RN Gender Identity Not on file Sexual Orientation Not on file documented as of this encounter Miscellaneous Notes * Telephone Encounter - Aliya Braswell RN - 05/07/2024 10:44 AM REVIEW RN Risk assessment and last ROV note of Dr Baron's refaxed over to [facility] and confirmation received that transmission was successful. Then called [facility] about 45 minutes later and she confirmed that the transmission was received. EW RN * Telephone Encounter - Chiquita Walton - 05/07/2024 9:29 AM CST Received call from [facility] needing to speak with nurse coordinator regarding: [facility] states that per the note in Epic stated that the risk assessment was sent that she never got it. She is requesting a return of that and also the Cardiac Clearance. Surgery is tomorrow so she needs it as soon as possible. Patient needs a return call from the nurse coordinator. Please call at [phone] and refax the documents to her EW RN documented in this encounter Plan of Treatment Not on file documented as of this encounter Visit Diagnoses Not on filedocumented in this encounter Care Teams Channel Business Manager Relationship Specialty Start Date End Date Sourav Romano MD [address] [place] [address] PCP - General Emergency Medicine 03/28/20 Joseph Cornejo MD [address] [facility] [address] Consulting Physician Cardiology 07/02/20 Brian Baron MD [address] [facility] [address] Nps Transplant 05/02/20 Aliya Braswell RN [address] [address] Heart Failure Coordinator Claim Examiner 05/02/20 documented as of this encounter
--- OUTSIDE RECORDS SUMMARY | 2024-05-08 00:43 | XMS_ITS | Encounter Summary ---
Author Organization [facility] Healthcare Address [address] [place] [address] Care Team Providers Care Registered Dietitian Name Role Phone Sourav Romano MD Primary Care Provide r Joseph Cornejo MD Unavailable [phone] Brian Baron MD Unavailable [phone] Aliya Braswell RN Unavailable Encounter Details Date Type Department Care Team (Late st Contact Info) Description 05/03/2024 Telephone [facility] Transplant Heart [address] [address] Mailstop [phone] [place] [address] Beth Willis 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 Tobacco Use Types Packs/Day Years [...] on file Legal 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 Gender Identity Not on file Sexual Orientation Not on file documented as of this encounter Plan of Treatment Not on file documented as of this encounter Visit Diagnoses Not on filedocumented in this encounter Care Teams Registered Dietitian Relationship Specialty Start Date End Date Sourav Romano MD [address] [place] [address] PCP - General Emergency Medicine 03/28/20 Joseph Cornejo MD [address] [place] [address] Consulting Physician Cardiology 07/02/20 Brian Baron MD [address] [place] [address] Imaging System Administrator Transplant 05/02/20 Aliya Braswell, RN [address] [address] Heart Failure Coordinator Industrial Training Specialist 05/02/20 documented as of this encounter
--- OUTSIDE RECORDS SUMMARY | 2024-05-08 00:44 | XMS_ITS | Referral Summary ---
Author Organization [facility] [address] Address [address] [place] [address] Care Team Providers Care Cash Teller Name Role Phone Sourav Romano MD Primary Care Provide r Joseph Cornejo MD Unavailable Brian Baron MD Unavailable [phone] Aliya Braswell RN Unavailable [phone] Encounters Date Type Department Care Team Description 05/07/2024 Telephone [facility] Transplant Heart [address] [facility] [address] [address] [place] [address] Chiquita Walton 05/03/2024 Telephone [facility] Transplant Heart [address] [facility] [address] [id number] [place] [address] Beth Willis 04/30/2024 Telephone [facility] Transplant Heart [address] [facility] [address] [id number] [place] [address] Aliya Braswell, STEPHANIE 04/27/2024 Telephone [facility] Transplant Heart [address] [facility] [address] [id number] [place] [address] Aliya Braswell, STEPHANIE 04/26/2024 Telephone [facility] Transplant Heart [address] [facility] [address] 90[address]29-906 [place] [address] Chiquita Walton 04/18/2024 Orders Only [facility] Otolaryngology [address] [place] [address], [address] [place] [phone] Shruthi Lind CMA Sensorineural hearing loss, bilateral (Primary Dx) 04/18/2024 Orders Only [facility] Otolaryngology [address] [place] [address], [address] [place] [address] MynormarikaShruthi zavala PROJECT RESERVOIR ENGINEER Sensorineural hearing loss, bilateral (Primary Dx) 04/18/2024 1:00 PM CORRECTIONAL OFFICER Procedure visit [facility] [address], [address] [address] Asymmetrical sensorineural hearing loss (Primary Dx) 04/18/2024 1:00 PM CORRECTIONAL OFFICER Office Visit [facility] Otolaryngology [address] [place] [address], [address] [address] Segundo Hurley MD Sensorineural hearing loss (SNHL) of left ear with unrestricted hearing of right ear (Primary Dx); Impairment of auditory discrimination of both ears; Tinnitus aurium, left 04/17/2024 Telephone [facility] 3rd [place] [phone] Elvia Donahue MS 03/29/2024 Telephone [facility] - [facility] ENT [address] [facility] Advanced Medicine 11th [place] [address] [place] [phone] Elvia Donahue MS from Last 3 Months Allergies No known active allergies Medications ALPRAZolam (XANAX) 0.5 mg tablet Take by mouth 3 (three) times a day as needed Active aspirin 81 mg enteric coated tabletIndicatio ns:primary prevention Take 1 tablet (81 mg total) by mouth daily Active atorvastatin (LIPITOR) 40 mg tablet Take 1 tablet (40 mg total) by mouth daily 90 tablet 3 1 Active sacubitriL-vals latha (ENTRESTO) 97-103 mg tabletIndicatio ns:chronic heart failure Take 1 tablet by mouth 2 (two) times a day 60 tablet 11 3 Active spironolactone (ALDACTONE) 25 mg tablet TAKE 1 TABLET(25 MG) BY MOUTH DAILY 90 tablet 4 Active albuterol HFA (PROVENTIL HFA,VENTOLIN HFA,PROAIR HFA) 90 mcg/actuation inhaler Inhale 1 puff every 4 (four) hours as needed for wheezing or shortness of breath 4 Active furosemide (LASIX) 20 mg tablet Take 1 tablet (20 mg total) by mouth 2 (two) times a day 60 tablet 11 4 08/25/19 25 Active amLODIPine (NORVASC) 5 mg tablet Take 1 tablet (5 mg total) by mouth daily 4 Active carvediloL (COREG) 12.5 mg tablet Take 1 tablet (12.5 mg total) by mouth 2 (two) times a day with meals 60 tablet 11 4 03/07/20 25 Active diazePAM (VALIUM) 10 mg tablet Take 30 min prior to test 1 tablet 5 Active Active Problems Problem Noted Date Diagnosed Date Schwannoma 07/22/2020 Overview (07/22/2020): Added automatically from request for surgery [id number] 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 Diagnosis uncertain - PET May 2020 with mild patchy FDG radiotracer uptake within the basal anteroseptal and basal inferoseptal myocardium consistent with mild active inflammation. This likely represents mild active cardiac sarcoidosis but could alternatively represent myocarditis (possibly related to prior covid infection). EMBx May 2020 no granuloma or inflammation PDG PET Oct 2020 No abnormal FDG uptake within the myocardium. Previous regions of FDG activity in basal anteroseptal and infero-septal myocardium have resolved, possibly reflecting a resolved active-inflammatory process such as sarcoidosis or myocarditis. No areas of FDG uptake to suggest systemic active inflammatory process. Reduced perfusion of the inferior wall, more pronounced in the basal-and mid-segments with mild extension to the basal segment of the intraventricular septum. Stage 3 chronic kidney disease 04/22/2020 Coronary artery disease invo lving chemehuevi coronary artery of che[place]uevi heart without angina pectoris 04/22/2020 Nonischemic cardiomyopathy (CMS/HCC) 04/22/2020 Overview (10/13/2022): Diagnosed Mar 2020 @ [facility] Mar 2020 20-30% in LAD, diagonal, circumflex and 50% mid RCA stenosis EKG LVH with ST abnormality QRS 126 ms See inflammatory cardiomyopathy TTE July 2022 - LVEF 30-35%, LVIDD 5.5 cm. Done in setting of TIA. Was off carvedilol HTN (hypertension), benign 04/22/2020 Dyslipidemia 04/22/2020 Chronic HFrEF (heart failure with reduced ejection fraction) (CMS/HCC) 04/22/2020 Resolved Problems Problem Noted Date Diagnosed Date Resolved Date Cough 10/08/2020 11/08/2020 Neuroma 07/22/2020 11/08/2020 Overview (07/22/2020): Added automatically from request for surgery [id number] Status post laparoscopic appendectomy 08/07/2018 11/08/2020 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 Tobacco Use Types Packs/Day Years Used Date Smoking Tobacco: Never Smokeless Tobacco: Never Tobacco Cessation:Counseling Given: Not Answered Alcohol Use Standard Drinks/Week Comments Yes 0 [...] on file Legal Sex Male 7:07 PM CORRECTIONAL OFFICER Gender Identity Not on file Sexual Orientation Not on file Last Filed Vital Signs Vital Sign Reading Time Taken Comments Blood Pressure 134/87 11/24/2023 3:39 PM CDT Pulse 72 08/25/2023 4:34 PM CDT Temperature 36.7 C (98.1 F) 05/12/2021 9:39 AM CORRECTIONAL OFFICER Respiratory Rate 19 07/18/2020 10:00 AM CDT Oxygen Saturation 98% 08/25/2023 4:34 PM CDT Inhaled Oxygen Concentration - - Weight 108.9 kg (240 lb) 11/24/2023 3:39 PM CDT Height 175.3 cm (5' 9 ) 11/24/2023 3:39 PM CDT Body Mass Index 35.44 11/24/2023 3:39 PM CDT Plan of Treatment Not on file Procedures Procedure Name Priority Date/Time Associated Diagnosis Comments AUDBASE RESULTS 04/18/2024 12:56 PM CORRECTIONAL OFFICER from Last 3 Months Results * AudBase Results (04/18/2024 12:56 PM CORRECTIONAL OFFICER) Provider Scanning AUDIOLOGY SERVICES ORDERABLES Final Result from Last 3 Months Insurance [place] Advance Directives For more information, please contact: [phone] * Full Code (Latest Code Status on File) Date Activated Date Inactivated Comments 07/18/2020 9:57 AM 07/18/2020 2:42 PM Care Teams Cash Teller Relationship Specialty Start Date End Date Sourav Romano MD [address] [facility] [place] [address] PCP - General Emergency Medicine 03/28/20 Joseph Cornejo MD [address] [place] [address] Consulting Physician Cardiology 07/02/20 Brian Baron MD [address] [place] [address] Master Of Ceremonies Transplant 05/02/20 Aliya Braswell, RN [address] [address] Heart Failure Coordinator Boiler Erector 05/02/20
--- OUTSIDE RECORDS SUMMARY | 2024-05-08 00:44 | XMS_ITS | Clinical Summary ---
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 Done in setting of TIA. Was off carvedilol HTN (hypertension), benign 04/22/2020 Dyslipidemia 04/22/2020 Chronic HFrEF (heart failure with reduced ejection fraction) ([facility]) 04/22/2020 Resolved Problems Problem Noted Date Diagnosed Date Resolved Date Cough 10/08/2020 11/08/2020 Neuroma 07/22/2020 11/08/2020 Overview (07/22/2020): Added automatically from request for surgery [id number] Status post laparoscopic appendectomy 08/07/2018 11/08/2020 Encounters Date Type Department Care Team Description 05/07/2024 Telephone [facility] Transplant Heart [address] [place] [address] [address] [place] [address] Chiquita Walton 05/03/2024 Telephone [facility] Transplant Heart [address] [place] [address] [address] [employer] [address] [place] [address] Beth Willis 04/30/2024 Telephone [facility] Transplant Heart [address] [place] [address] [address] [place] [address] Aliya Braswell, RN 04/27/2024 Telephone [facility] Transplant Heart [address] [place] [address] [address] [place] [address] Aliya Braswell, RN 04/26/2024 Telephone [facility] Transplant Heart [address] [place] [address] [address] [place] [address] Chiquita Walton 04/18/2024 1:00 PM ORGAN ASSEMBLER Procedure visit [facility] [address] [place] [phone] Asymmetrical sensorineural hearing loss (Primary Dx) 04/18/2024 1:00 PM ORGAN ASSEMBLER Office Visit [facility] Otolaryngology [address] [facility], [address] [place] [address] Segundo Hurley MD Sensorineural hearing loss (SNHL) of left ear with unrestricted hearing of right ear (Primary Dx); Impairment of auditory discrimination of both ears; Tinnitus aurium, left 04/18/2024 Orders Only [facility]ology [address] [facility] [place] [address] Shruthi Lind CMA Sensorineural hearing loss, bilateral (Primary Dx) 04/18/2024 Orders Only [facility] Otol[facility]ology [address] [facility] [place] [address] Shruthi Lind CMA Sensorineural hearing loss, bilateral (Primary Dx) 04/17/2024 Telephone [facility] Otolaryngology [facility] 3rd [place] [address] Elvia Donahue, 03/29/2024 Telephone [facility] Advanced [facility] ([facility]) - [facility] ENT [address] [facility] Advanced Medicine 11th [place] [address] [place] [address] Elvia Donahue, from Last 3 Months Surgical History Surgery Date Site/Laterality Comments CARDIAC CATHETERIZATION APPENDECTOMY NECK SURGERY Medical History Medical History Date Comments Hypertension Appendicitis CHF (congestive heart failure) (CMS/HCC) ([facility]) Nonischemic cardiomyopathy (CMS/HCC) ([facility]) Coronary artery disease Delayed emergence from general anesthesia Covid-19 Hx of in Jan Family History Medical History Relation Name Comments COPD Father Diabetes Mother Anesthesia problems Neg Hx Relation Name Status Comments Father Alive Mother Alive 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 Tobacco Use Types Packs/Day Years [...] on file Legal Sex Male 7:07 PM ORGAN ASSEMBLER Gender Identity Not on file Sexual Orientation Not on file Obstetrics History Last Filed Vital Signs Vital Sign Reading Time Taken Comments Blood Pressure 134/87 11/24/2023 3:39 PM CDT Pulse 72 08/25/2023 4:34 PM CDT Temperature 36.7 C (98.1 F) 05/12/2021 9:39 AM ORGAN ASSEMBLER Respiratory Rate 19 07/18/2020 10:00 AM CDT Oxygen Saturation 98% 08/25/2023 4:34 PM CDT Inhaled Oxygen Concentration - - Weight 108.9 kg (240 lb) 11/24/2023 3:39 PM CDT Height 175.3 cm (5' 9 ) 11/24/2023 3:39 PM CDT Body Mass Index 35.44 11/24/2023 3:39 PM CDT Plan of Treatment Health Maintenance Due Date Last Done Comments Colon Cancer Screening-Colonoscopy 1969 Depression Screening 1969 Hepatitis C Screening 1969 Prostate Cancer Screening-PSA 1969 Pneumococcal vaccine <65 (1 of 2 - PCV) 1975 DTaP/Tdap/Td Vaccine (1 - Tdap) 02/20/1980 Hepatitis B Screening 1987 Regular Well Visit/Exam 18-64 1987 Zoster Vaccine (1 of 2) 2019 Influenza Vaccine (#1) 2023 Procedures Procedure Name Priority Date/Time Associated Diagnosis Comments AUDBASE RESULTS 04/18/2024 12:56 PM ORGAN ASSEMBLER from Last 3 Months Results * AudBase Results (04/18/2024 12:56 PM ORGAN ASSEMBLER) us Provider Scanning AUDIOLOGY SERVICES ORDERABLES Final Result from Last 3 Months Insurance [place] Advance [place] For more information, please contact: [phone] * Full Code (Latest Code Status on File) Date Activated Date Inactivated Comments 07/18/2020 9:57 AM 07/18/2020 2:42 PM Care Teams Campaign Assistant Relationship Specialty Start Date End Date Sourav Romano MD [address] [place] [address] PCP - General Emergency Medicine 03/28/20 Joseph Cornejo MD [address] [place] [address] Consulting Physician Cardiology 07/02/20 Brian Baron MD [address] [place] [address] Branch Specialist Transplant 05/02/20 Aliya Braswell, STEPHANIE [address] [address] Heart Failure Coordinator Sales Representative [employer] 05/02/20
[2024-05-08 08:25] VITALS: BP 169/117; PULSE 73; RESP 20; TEMP 36.2; O2SAT 100
[2024-05-08] MEDS: LACTATED RINGERS 1,000 ML 150 ML IV CONT (08:39)
--- NOTE | 2024-05-08 08:41 | SUR.PREOP ---
NELSON MAGDALENO CRNA NOTIFIED OF PT'S BLOOD PRESSURE 169/117, HR 73, MEDS PT IS ON, AND MEDS PT HAS TAKEN TODAY. PT NERVOUS. NO NEW ORDERS RECEIVED. WILL CONTINUE TO MONITOR.
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
[2024-05-08 09:57] VITALS: BP 145/95; PULSE 66; RESP 27; O2SAT 100
[2024-05-08 10:07] VITALS: BP 142/99; PULSE 60; RESP 24; O2SAT 99
[2024-05-08 10:17] VITALS: BP 147/95; PULSE 61; RESP 18; O2SAT 98
== END 2024-05-08 10:25 | disposition home or self-care (01) ==
PROVIDERS: PCP Emergency Medicine; Referring Provider Emergency Medicine; Visit Provider Internal Medicine Gastroenterology
PROC: 0DJD8ZZ Inspection of Lower Intestinal Tract, Via Natural or Artificial Opening Endoscopic (ICD-10-PCS; CPT 45378; principal; 2024-05-08 09:30)
DX: Z12.11 Encounter for screening for malignant neoplasm of colon (principal); K64.8 Other hemorrhoids; K57.30 Diverticulosis of large intestine without perforation or abscess without bleeding; I12.9 Hypertensive chronic kidney disease with stage 1 through stage 4 chronic kidney disease, or unspecified chronic kidney disease; N18.30 Chronic kidney disease, stage 3 unspecified; I50.9 Heart failure, unspecified; F41.9 Anxiety disorder, unspecified; R01.1 Cardiac murmur, unspecified; E66.9 Obesity, unspecified; Z68.37 Body mass index [BMI] 37.0-37.9, adult; Z79.82 Long term (current) use of aspirin; Z98.890 Other specified postprocedural states; Z98.61 Coronary angioplasty status; Z87.891 Personal history of nicotine dependence; Z86.73 Personal history of transient ischemic attack (TIA), and cerebral infarction without residual deficits
CPT/HCPCS: 45378; J2003; J2704; J7120

== ENCOUNTER → 2024-07-16 15:38 | Outpatient (REF) | payer BC, SELFPAY ==
--- OUTSIDE RECORDS SUMMARY | 2024-07-16 17:32 | XMS_ITS | Referral Summary ---
Author Organization [facility] [address] Address [address] [place] [address] Care Team Providers Care Central Office Frame Wirer Name Role Phone Sourav Romano MD Primary Care Provide r Joseph Cornejo MD Unavailable Brian Baron MD Unavailable [phone] Aliya Braswell RN Unavailable [phone] Encounters Date Type Department Care Team Description 06/28/2024 Telephone [facility] ([facility]) - [facility] ENT [address] [facility] 11th [place] [address] [place] [address] Elvia Donahue, 06/27/2024 2:30 PM CDT Procedure visit [facility] Otolaryngology [address] [place] [address] Medicine 11th [place] [address] [place] [address] Lisbeth Munoz Au.D. Sensorineural hearing loss, bilateral (Primary Dx) 05/23/2024 1:00 PM PROCESS STRIPPER Procedure visit [facility] Otolaryngology [address] [place] [address] Medicine 11th [place] [address] [place] [address] Lisbeth Munoz Au.D. Sensorineural hearing loss, bilateral 05/07/2024 Telephone [facility] and [facility] Transplant Heart [address] [facility] [address] Mailstop 20-01-488 [place] [address] Chiquita Walton 04/30/2024 Telephone [facility] and [facility] Transplant Heart [address] [facility] [address] Mail[address] -41-810 [place] [address] Aliya Braswell, STEPHANIE 04/27/2024 Telephone [facility] and [facility] Transplant Heart [address] [facility] [address]725 [place] [address] Aliya Braswell, STEPHANIE 04/26/2024 Telephone [facility] and [facility] Transplant Heart [address] [place] [address] [address] Mailstop -26-887 [place] [address] Chiquita Walton 04/18/2024 Orders Only [facility] Otolaryngology [facility] [address] [place] [address] Shruthi Lind CMA Sensorineural hearing loss, bilateral (Primary Dx) 04/18/2024 Orders Only [facility] Otolaryngology [facility], [address] [address] Shruthi Lind CMA Sensorineural hearing loss, bilateral (Primary Dx) 04/18/2024 1:00 PM PROCESS STRIPPER Procedure visit [facility] Otolaryngology [facility], [facility] [address] [place] [address] Asymmetrical sensorineural hearing loss (Primary Dx) 04/18/2024 1:00 PM PROCESS STRIPPER Office Visit [facility] Otolaryngology [facility], [facility] [address] [place] [address] Segundo Hurley MD Sensorineural hearing loss (SNHL) of left ear with unrestricted hearing of right ear (Primary Dx); Impairment of auditory discrimination of both ears; Tinnitus aurium, left 04/17/2024 Telephone [facility] Otolaryngology [address] [id number] Elvia Donahue from Last 3 Months Allergies No known [...] (07/22/2020): Added automatically from request for surgery [id number] 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 Done in setting of TIA. Was off carvedilol HTN (hypertension), benign 04/22/2020 Dyslipidemia 04/22/2020 Chronic HFrEF (heart failure with reduced ejection fraction) 04/22/2020 Resolved Problems Problem Noted Date Diagnosed Date Resolved Date Cough 10/08/2020 11/08/2020 Neuroma 07/22/2020 11/08/2020 Overview (07/22/2020): Added automatically from request for surgery [id number] Status post laparoscopic appendectomy 08/07/2018 11/08/2020 Social [...] on file Legal Sex Male 7:07 PM PROCESS STRIPPER Gender Identity Not on file Sexual Orientation Not on file Last Filed Vital Signs Vital Sign Reading Time Taken Comments Blood Pressure 134/87 11/24/2023 3:39 PM CDT Pulse 72 08/25/2023 4:34 PM CDT Temperature 36.7 C (98.1 F) 05/12/2021 9:39 AM PROCESS STRIPPER Respiratory Rate 19 07/18/2020 10:00 AM CDT Oxygen Saturation 98% 08/25/2023 4:34 PM CDT Inhaled Oxygen Concentration - - Weight 115.7 kg (255 lb) 05/23/2024 3:14 PM PROCESS STRIPPER Height 177.8 cm (5' 10 ) 05/23/2024 3:14 PM PROCESS STRIPPER Body Mass Index 36.59 05/23/2024 3:14 PM PROCESS STRIPPER Plan of Treatment Not on file Procedures Procedure Name Priority Date/Time Associated Diagnosis Comments AUDBASE RESULTS 04/18/2024 12:56 PM PROCESS STRIPPER from Last 3 Months Results * AudBase Results (04/18/2024 12:56 PM PROCESS STRIPPER) Provider Scanning AUDIOLOGY SERVICES ORDERABLES Final Result from Last 3 Months [place] Direct[place] For more information, please contact: [phone] * Full Code (Latest Code Status on File) Date Activated Date Inactivated Comments 07/18/2020 9:57 AM 07/18/2020 2:42 PM Care Teams Central Office Frame Wirer Relationship Specialty Start Date End Date Sourav Romano MD [address] [facility] [place] [address] PCP - General Emergency Medicine 03/28/20 Joseph Cornejo MD [address] [place] [address] Consulting Physician Cardiology 07/02/20 Brian Baron MD [address] [place], [place] [id number] [facility] 05/02/20 Aliya Braswell, RN [address] [address] Heart Failure Coordinator Manager Training And Development 05/02/20
--- OUTSIDE RECORDS SUMMARY | 2024-07-16 17:32 | XMS_ITS | Clinical Summary ---
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 Overview (05/12/2021): Cardiac MRI [...] disease 04/22/2020 Coronary artery disease invo lving [place] coronary artery of [place] heart without angina pectoris 04/22/2020 Nonischemic cardiomyopathy 04/22/2020 Overview (10/13/2022): Diagnosed Mar 2020 @ [facility] Mar 2020 20-30% in LAD, diagonal, [...] (07/22/2020): Added automatically from request for surgery [id number] Status post laparoscopic appendectomy 08/07/2018 11/08/2020 Encounters Date Type Department Care Team Description 06/28/2024 Telephone [facility] ([facility]) - [facility] ENT [address] [facility] 11th [place] [address] [place] [address] Elvia Donahue, MS 06/27/2024 2:30 PM CDT Procedure visit [facility] Otolaryngology [address] [place] [address] 11th [place] [address] [place] [address] Lisbeth Munoz Au.D. Sensorineural hearing loss, bilateral (Primary Dx) 05/23/2024 1:00 PM TAWER Procedure visit [facility] Otolaryngology [address] [place] [address] 11th [place] [address] [place] [address] Lisbeth Munoz Au.D. Sensorineural hearing loss, bilateral 05/07/2024 Telephone [facility] Transplant Heart [address] [facility] [address] Mailstop 34-20-121 [place] [address] Chiquita Walton 04/30/2024 Telephone [facility] Transplant Heart [address] [place] [address] [address] Mail[address] 90-70-535 [place] [address] Aliya Braswell RN 04/27/2024 Telephone [facility] Transplant Heart [address] [facility] [address] Mail[address] 57-91-306 [place] [address] Aliya Braswell RN 04/26/2024 Telephone [facility] and [facility] Transplant Heart [address] [facility] [address] Mail[address] 39-87-988 [place] [address] Chiquita Walton 04/18/2024 1:00 PM TAWER Procedure visit [facility] [address] [place] [id number] Asymmetrical sensorineural hearing loss (Primary Dx) 04/18/2024 1:00 PM TAWER Office Visit [facility] Otolaryngology [address] [place] [address], [address] [place] [address] Segundo Hurley MD Sensorineural hearing loss (SNHL) of left ear with unrestricted hearing of right ear (Primary Dx); Impairment of auditory discrimination of both ears; Tinnitus aurium, left 04/18/2024 Orders Only [facility] Otolaryngology [address] [place] [address], [address] [place] [address] Shruthi Lind CMA Sensorineural hearing loss, bilateral (Primary Dx) 04/18/2024 Orders Only [facility] Otolaryngology [address] [place] [address], [address] [place] [address] Shruthi Lind CMA Sensorineural hearing loss, bilateral (Primary Dx) 04/17/2024 Telephone [facility] Otolaryngology [facility] [address] [place] [address] Elvia Donahue MS from Last 3 Months Surgical History Surgery Date Site/Laterality Comments CARDIAC CATHETERIZATION APPENDECTOMY NECK SURGERY Medical History Medical History Date Comments Hypertension Appendicitis CHF (congestive heart failure) (HCC) Nonischemic cardiomyopathy (HCC) Coronary artery disease Delayed emergence from general [...] on file Legal Sex Male 7:07 PM TAWER Gender Identity Not on file Sexual Orientation Not on file Obstetrics History Last Filed Vital Signs Vital Sign Reading Time Taken Comments Blood Pressure 134/87 11/24/2023 3:39 PM CDT Pulse 72 08/25/2023 4:34 PM CDT Temperature 36.7 C (98.1 F) 05/12/2021 9:39 AM TAWER Respiratory Rate 19 07/18/2020 10:00 AM CDT Oxygen Saturation 98% 08/25/2023 4:34 PM CDT Inhaled Oxygen Concentration - - Weight 115.7 kg (255 lb) 05/23/2024 3:14 PM TAWER Height 177.8 cm (5' 10 ) 05/23/2024 3:14 PM TAWER Body Mass Index 36.59 05/23/2024 3:14 PM TAWER Plan of Treatment Health Maintenance Due Date Last Done Comments Colon Cancer Screening-Colonoscopy 1969 Depression Screening 1969 Hepatitis C Screening 1969 Prostate Cancer Screening-PSA 1969 DTaP/Tdap/Td Vaccine (1 - Tdap) 02/20/1980 Hepatitis B Screening 1987 Regular Well Visit/Exam 18-64 1987 Pneumococcal vaccine <65 (1 of 2 - PCV) 02/20/1988 Zoster Vaccine (1 of 2) 2019 Influenza Vaccine (Season Ended) 2024 Procedures Procedure Name Priority Date/Time Associated Diagnosis Comments AUDBASE RESULTS 04/18/2024 12:56 PM TAWER from Last 3 Months Results * AudBase Results (04/18/2024 12:56 PM TAWER) Provider Scanning AUDIOLOGY SERVICES ORDERABLES Final Result from Last 3 Months [place] For more information, please contact: [phone] * Full Code (Latest Code Status on File) Date Activated Date Inactivated Comments 07/18/2020 9:57 AM 07/18/2020 2:42 PM Care Teams Telephone Collector Relationship Specialty Start Date End Date Sourav Romano MD [address] [facility] [place] [address] PCP - General Emergency Medicine 03/28/20 Joseph Cornejo MD [address] [facility] [place] [address] Consulting Physician Cardiology 07/02/20 Brian Baron MD [address] [place] [address] Staff Internist Office Based Only Transplant 05/02/20 Aliya Braswell RN [address] [address] Heart Failure Coordinator Personal Finance Instructor 05/02/20
== END ==
LOC: ANHLAB 15:38
PROVIDERS: PCP Emergency Medicine; Visit Provider Physician Assistant Surgical
DX: L72.0 Epidermal cyst (principal)
CPT/HCPCS: 88305